=== PATIENT | male | born 1975 | race African-American/Black ===

== ENCOUNTER 2017-09-01 09:22 | Emergency (ER) | payer OTHER ==
[2017-09-01] MEDS ORDERED: cloNIDine 0.1 MG TAB ONE (09:45)
[2017-09-01] MEDS ORDERED: Lisinopril 10 MG TAB ONE (09:45)
[2017-09-01 09:59] LABS: #Eosinphils 0.1 thou/uL (0.0-0.7); #Lymphocytes 1.6 thou/uL (1.20-3.40); #Monocytes 0.4 thou/uL (0.11-0.59); #Neutrophils 4.5 thou/uL (1.40-6.50); %Basophils 0.5 % (0.0-1.0); %Eosinophils 1.3 % (0.0-10.0); %Lymphocytes 24.2 % (21.0-51.0); %Monocytes 5.6 % (0.0-10.0); Hematocrit 45.7 % (42.0-52.0); Mean Platelet Volume 10.6 fL (7.4-10.4); Red Blood Cell (RBC) Count 4.94 mill/uL (4.70-6.10); White Blood Cell (WBC) Count 6.6 thou/uL (4.8-10.8)
[2017-09-01] MEDS ORDERED: Hydrochlorothiazide 25 MG TAB PO SCH (10:00)
--- NOTE | 2017-09-01 10:22 | RAD ---
PORTABLE CHEST 1 VIEW: Date: 09/01/17 Time: 0943 hours HISTORY: Hypertension, chest pain. FINDINGS: Comparison made with exam of 10/06/16. The heart size is normal. The lungs are well expanded without focal areas of consolidation, pneumoth orax, or pleural effusions. There is no evidence of yadiel pulmonary edema. IMPRESSION: No radiographic evidence of acute cardiopulmonary process. POS: [facility]
[2017-09-01 10:24] LABS: ALT (SGPT) 15 U/L (8-55); AST (SGOT) 12 U/L (5-34); Alkaline Phosphatase 80 U/L (40-150); Anion Gap 8 mmol/L (10-20); BUN (Urea Nitrogen) 22 mg/dL (8.9-20.6); Bilirubin, Total 0.4 mg/dL (0.2-1.2); CK (CPK) 293 U/L (30-200); Calc. Creatinine Clearance 0 mL/min (70-130); Calcium 8.9 mg/dL (7.8-10.44); Carbon Dioxide 30 mmol/L (22-29); Chloride 106 mmol/L (98-107); Estimated GFR-MDRD 54; Globulin 2.9 g/dL (2.4-3.5); Protein, Total 6.9 g/dL (6.0-8.3); Troponin I 0.019 ng/mL (< 0.028)
== END 2017-09-01 11:46 | disposition home or self-care (01) ==
LOC: ERS 09:22
DX: R07.9 Chest pain, unspecified (principal); I10 Essential (primary) hypertension; E11.9 Type 2 diabetes mellitus without complications; F17.210 Nicotine dependence, cigarettes, uncomplicated; Z79.899 Other long term (current) drug therapy
CPT/HCPCS: 36415; 71010; 80053; 82550; 82553; 84484; 85025; 93005

== ENCOUNTER 2017-11-22 21:13 | Observation (INO) | payer OTHER ==
--- NOTE | 2017-11-22 21:48 | RAD ---
CHEST ONE VIEW 11/22/17 HISTORY: Chest pain. COMPARISON: Chest one view 09/01/17. FINDINGS: Heart size is mildly enlarged. No focal air space consolidation, pneumothorax or effusion. No osseous abnormality. IMPRESSION: Mild cardiomegaly. POS: [facility]
[2017-11-22 22:06] LABS: #Eosinphils 0.1 thou/uL (0.0-0.7); #Lymphocytes 2.4 thou/uL (1.20-3.40); #Monocytes 0.6 thou/uL (0.11-0.59); #Neutrophils 4.7 thou/uL (1.40-6.50); %Basophils 0.6 % (0.0-1.0); %Eosinophils 1.7 % (0.0-10.0); %Lymphocytes 30.7 % (21.0-51.0); %Monocytes 7.1 % (0.0-10.0); %Neutrophils 59.9 % (42.0-75.0); Hemoglobin 15.9 g/dL (14.0-18.0); Mean Corpuscular HGB CONC 32.8 g/dL (32.0-36.0); Mean Corpuscular Hemoglobin 30.8 pg (27.0-31.0); Mean Corpuscular Volume 93.9 fl (80.0-94.0); Mean Platelet Volume 10.5 fL (7.4-10.4); Platelet Count 146 thou/uL (130-400); RBC Distribution Width 12.7 % (11.5-14.5); Red Blood Cell (RBC) Count 5.17 mill/uL (4.70-6.10); White Blood Cell (WBC) Count 7.8 thou/uL (4.8-10.8)
[2017-11-22 22:23] LABS: ALT (SGPT) 23 U/L (8-55); AST (SGOT) 16 U/L (5-34); Albumin 3.9 g/dL (3.5-5.0); Alkaline Phosphatase 67 U/L (40-150); Anion Gap 14 mmol/L (10-20); BUN (Urea Nitrogen) 18 mg/dL (8.9-20.6); Bilirubin, Total 0.5 mg/dL (0.2-1.2); Calc. Creatinine Clearance 0 mL/min (70-130); Calcium 9.6 mg/dL (7.8-10.44); Carbon Dioxide 31 mmol/L (22-29); Chloride 102 mmol/L (98-107); Estimated GFR-MDRD 48; Globulin 2.5 g/dL (2.4-3.5); Glucose 119 mg/dL (70-105); Potassium 3.8 mmol/L (3.5-5.1); Protein, Total 6.4 g/dL (6.0-8.3); Sodium 143 mmol/L (136-145)
[2017-11-22 22:28] LABS: CKMB 3.8 ng/mL (0-6.6); Troponin I 0.032 ng/mL (< 0.028)
[2017-11-23] MEDS ORDERED: Acetaminophen 325 MG TAB PO PRN (00:22)
[2017-11-23 01:19] LABS: Troponin I 0.038 ng/mL (< 0.028)
[2017-11-23 02:18] VITALS: BMI 29.3
[2017-11-23 04:48] LABS: Troponin I 0.033 ng/mL (< 0.028)
[2017-11-23] MEDS ORDERED: Aspirin 325 MG TAB PO SCH (09:00)
--- NOTE | 2017-11-23 17:47 | NM ---
NUCLEAR MEDICINE CARDIAC STRESS TEST WITH EJECTION FRACTION: History: Hypertension. Smoker. Chest pain. Comparison: None. Technique: A nuclear medicine stress and rest was performed after the intravenous administration of 2 9.6 and 10.2 mCi Technetium 99M Sestamibi, respectively. FINDINGS: There is no evidence of scar or ischemia. The wall motion is normal. Ejection fraction is low at 41%. IMPRESSION: 1. No evidence of scar or ischemia. 2. Low ejection fraction at 41%. POS: [facility]
[2017-11-23] MEDS ORDERED: cloNIDine 0.1 MG TAB PO PRN (18:44)
[2017-11-23] MEDS ORDERED: Dextrose 5% in Water 1,000 ML IV PRN (18:45)
[2017-11-23] MEDS ORDERED: Insulin Regular 300 UNITS/3 ML VIAL SC PRN ×2 (18:45)
[2017-11-23] MEDS ORDERED: Lisinopril/Hydrochlorothiazide 20 mg/12.5 mg Tablet PO SCH (18:45)
[2017-11-23] MEDS ORDERED: Dextrose 50% Abboject 50 ML SYRINGE IVP PRN (18:45)
[2017-11-24 04:39] LABS: Hemoglobin A1c 6.4 % (4.0-6.0)
--- NOTE | 2017-11-24 05:56 | HP ---
DATE OF ADMISSION: 11/22/2017 CHIEF COMPLAINT: Chest pain. HISTORY OF PRESENT ILLNESS: Mr. Keene is a 42-year-old -[place] male with past medical hist ory of hypertension and cardiomyopathy. He came with chest pain in the retrosternal area. The patie nt had vomited once and then developed chest discomfort. He has chest pain in the retrosternal area, nonradiating, associated with nausea and vomiting. No shortness of breath. The patient called the EMS. EMS found the patient with elevated blood pressure. In the ER, the patient was evaluated and f ound to have markedly elevated blood pressure. He still uses cocaine, drug abuse, as well as smokes cigarettes. The patient was in the hospital a year ago, had echocardiogram, which showed cardiomyopa thy with a decreased ejection fraction. The patient ran out of medication a few days ago. The patie jada received aspirin and admitted for further evaluation and management. PAST MEDICAL HISTORY: 1. Hypertension. 2. History of borderline diabetes. PAST SURGICAL HISTORY: Status post neck surgery. CURRENT MEDICATIONS: Supposed to be on lisinopril 20/12.5 b.i.d. ALLERGIES: No known drug allergies. FAMILY HISTORY: Nothing of interest. SOCIAL HISTORY: The patient lives with family. Smokes few cigarettes a day and also uses cocaine an d he is a social drinker. REVIEW OF SYSTEMS: Cardiovascular: No chest pain. No shortness of breath. Respiratory: No fever or cough. Gastrointestinal: Has nausea and vomiting. No abdominal pain. Genitourinary: No dysuri a or hematuria. Central nervous system: No headache. No dizziness. PHYSICAL EXAMINATION: GENERAL: The patient is alert, awake, oriented x3. VITAL SIGNS: Temperature 98, pulse 72, respirations 20, blood pressure 160/100. HEENT: Head is normocephalic, atraumatic. Pupils equal and reactive. Nasopharynx is pink, moist. NECK: Supple. No JVD. LUNGS: Bilateral air entry present. No rales. No rhonchi. HEART: S1, S2 regular. ABDOMEN: Soft. No distention. No tenderness. Normal bowel sounds present. RECTAL: Deferred. CENTRAL NERVOUS SYSTEM: No focal deficits. LABORATORY AND X-RAY FINDINGS: CBC shows WBC 7.8, hemoglobin 15, hematocrit 48, platelets 146. Butler bolic panel, sodium 143, potassium 3.8, chloride 102, CO2 of 31, BUN 18, glucose 119. CK-MB 3.8. Tr oponin I 0.032. Accuchecks 143 and 178. Chest x-ray, normal, some mild cardiomegaly. EKG shows normal sinus rhythm, no acute ST-T wave tavares es. ASSESSMENT: 1. Chest pain, rule out myocardial infarction. 2. Hypertension, malignant. 3. Cardiomyopathy with decreased ejection fraction of 40%. Echo done in 2016. 4. Cocaine abuse. 5. Chronic kidney disease, stage 3. 6. Borderline diabetes. PLAN: 1. Vital signs q.4 hours. 2. Activity: As tolerated. 3. Allergies: No known drug allergies. 4. Hep-Lock. 5. Continue home medicine. 6. Cardiac diet. 7. Stress test. 8. Accu-Cheks before meals and at bedtime. 9. Sliding scale mild with regular insulin.
[2017-11-24 08:27] VITALS: TEMP 98.1
[2017-11-24] MEDS ORDERED: Lisinopril/Hydrochlorothiazide 20 mg/12.5 mg Tablet PO SCH ×2 (10:00→21:00)
[2017-11-24 12:07] VITALS: BP 162/101
[2017-11-24] MEDS ORDERED: NIFEdipine XL 90 MG TAB PO SCH (14:30)
--- NOTE | 2017-11-25 06:51 | DIS ---
DATE OF ADMISSION: 11/23/2017 DATE OF DISCHARGE: 11/24/2017 ADMITTING DIAGNOSES: 1. Chest pain, rule out myocardial infarction. 2. Hypertension, malignant. 3. Cardiomyopathy with decreased ejection fraction of 40%. 4. Echo done in 2016. 5. History of cocaine abuse. 6. Chronic kidney disease, stage 3. 7. Diabetes mellitus. FINAL DIAGNOSES: 1. Chest pain. No evidence of acute myocardial infarction, negative stress test. 2. Malignant hypertension, improved. 3. Cardiomyopathy with decreased ejection fraction of 40%. 4. Chronic kidney disease. 5. Diabetes mellitus. BRIEF SUMMARY OF HOSPITAL COURSE: Mr. Keene is a 42-year-old -[place]une[place] male, admitted [facility] of chest pain. The patient had a retrosternal chest pain without any nausea or vomiting. The jeovanny ent was admitted to rule out GA. Stress test was done and it was reported as negative for ischemia, and confirmed the ejection fraction of 41%. The patient's blood pressure improved after the medicati ons were adjusted. In view of improvement, the patient is being discharged home. At the time of dis charge, he was stable. His vital signs were stable. Lungs were clear. Heart sounds regular. Abdom en was soft, nontender. Bowel sounds present. DISCHARGE MEDICATIONS: Include aspirin 81 mg daily, lisinopril with hydrochlorothiazide 20/12.5 b.i. d., metformin 500 b.i.d., nifedipine, Procardia XL 90 mg daily, pravastatin 40 mg daily. FOLLOWUP: The patient will come for followup in 2 weeks.
== END 2017-11-24 14:36 | disposition home or self-care (01) ==
LOC: ERS 21:13 → 2SW 11-23 00:20
PROVIDERS: ADMIT Internal Medicine; ATTEND Internal Medicine
DX: R07.89 Other chest pain (principal); I12.9 Hypertensive chronic kidney disease with stage 1 through stage 4 chronic kidney disease, or unspecified chronic kidney disease; E11.22 Type 2 diabetes mellitus with diabetic chronic kidney disease; N18.3 Chronic kidney disease, stage 3 (moderate); I42.9 Cardiomyopathy, unspecified; F14.10 Cocaine abuse, uncomplicated; F17.210 Nicotine dependence, cigarettes, uncomplicated; Z98.890 Other specified postprocedural states
CPT/HCPCS: 36415; 36416; 71045; 78452; 80053; 82553; 83036; 84484; 85025; 93005; 93017; A9500; G0378; J0153

== ENCOUNTER 2018-01-27 07:34 | Emergency (ER) | payer OTHER ==
[2018-01-27 08:13] LABS: #Basophils 0.1 thou/uL (0.0-0.2); #Eosinphils 0.1 thou/uL (0.0-0.7); #Lymphocytes 1.4 thou/uL (1.20-3.40); #Monocytes 0.5 thou/uL (0.11-0.59); #Neutrophils 4.8 thou/uL (1.40-6.50); %Eosinophils 1.6 % (0.0-10.0); %Monocytes 7.5 % (0.0-10.0); Hemoglobin 14.7 g/dL (14.0-18.0); Mean Corpuscular HGB CONC 33.5 g/dL (32.0-36.0); Mean Corpuscular Hemoglobin 31.3 pg (27.0-31.0); Mean Corpuscular Volume 93.2 fl (80.0-94.0); Platelet Count 137 thou/uL (130-400); RBC Distribution Width 12.5 % (11.5-14.5); Red Blood Cell (RBC) Count 4.69 mill/uL (4.70-6.10); White Blood Cell (WBC) Count 6.9 thou/uL (4.8-10.8)
[2018-01-27 08:24] LABS: Alkaline Phosphatase 74 U/L (40-150); Anion Gap 13 mmol/L (10-20); Bilirubin, Total 0.3 mg/dL (0.2-1.2); Calc. Creatinine Clearance 0 mL/min (70-130); Calcium 8.6 mg/dL (7.8-10.44); Carbon Dioxide 25 mmol/L (22-29); Chloride 104 mmol/L (98-107); Estimated GFR-MDRD 60; Globulin 2.7 g/dL (2.4-3.5); Glucose 154 mg/dL (70-105); Potassium 3.2 mmol/L (3.5-5.1); Protein, Total 6.7 g/dL (6.0-8.3); Sodium 139 mmol/L (136-145)
[2018-01-27 08:25] LABS: BUN (Urea Nitrogen) 22 mg/dL (8.9-20.6)
[2018-01-27 08:26] LABS: AST (SGOT) 11 U/L (5-34)
[2018-01-27 08:27] LABS: ALT (SGPT) 15 U/L (8-55); Lipase 33 U/L (8-78)
[2018-01-27 08:37] LABS: CK (CPK) 250 U/L (30-200)
--- NOTE | 2018-01-27 08:37 | RAD ---
ABDOMEN 2 VIEWS WITH 1 VIEW CHEST: Date: 01/27/18 HISTORY: Abdominal pain. COMPARISON: Chest radiograph dated 11/22/17. FINDINGS: The lungs are clear. No pneumothorax. There is a radiopacity projecting over the neck seen on the carlos st radiograph, unknown if this is ingested or outside of the patient. Lungs are without focal air space consolidation, pneumothorax, or effusion. Cardiac silhouette and me diastinal contours within normal limits. On the upright view, no free air under the hemidiaphragms. No dilated air-filled loops of large or sm all bowel. Advanced degenerative disease of both hip joints with sclerosis and subchondral cysts of the acetabul um. No dilated loops of large or small bowel. No abnormal calcification projecting over the renal shadows . IMPRESSION: No acute intrathoracic or intra-abdominal abnormality. POS: [facility]
[2018-01-27 09:49] LABS: CKMB 2.8 ng/mL (0-6.6); Troponin I 0.033 ng/mL (< 0.028)
[2018-01-27] MEDS ORDERED: Nitroglycerin 2% Ointment 1 INCH/1 GM Packet ONE (11:01)
[2018-01-27 12:38] LABS: CKMB 2.7 ng/mL (0-6.6); Troponin I 0.031 ng/mL (< 0.028)
--- NOTE | 2018-02-15 01:26 | EKG ---
Test Reason : CHEST PAIN Blood Pressure : / mmHG Vent. Rate : 089 BPM Atrial Rate : 089 BPM P-R Int : 140 ms QRS Dur : 072 ms QT Int : 438 ms P-R-T Axes : 057 -14 -14 degrees QTc Int : 532 ms Normal sinus rhythm Moderate voltage criteria for LVH, may be normal variant Inferior infarct , age undetermined Prolonged QT Abnormal ECG Confirmed by FLORIDA CANO MD ([id number]), department editor MEG BRODERICK ([id number]) on 02/15/2018 1:25:37 AM Referred By: Confirmed By:FLORIDA CANO MD
== END 2018-01-27 13:14 | disposition home or self-care (01) ==
LOC: ERS 07:34
DX: R10.13 Epigastric pain (principal); R07.9 Chest pain, unspecified; E11.9 Type 2 diabetes mellitus without complications; I10 Essential (primary) hypertension; F17.210 Nicotine dependence, cigarettes, uncomplicated; Z79.899 Other long term (current) drug therapy; Z79.84 Long term (current) use of oral hypoglycemic drugs
CPT/HCPCS: 36415; 74022; 80053; 82553; 83690; 84484; 85025; 93005; 96360; 96361

== ENCOUNTER 2018-03-01 19:06 | Inpatient (IN) | payer OTHER ==
[2018-03-01] MEDS ORDERED: Labetalol HCl 100 MG/20 ML VIAL ONE (19:29)
[2018-03-01 19:48] LABS: #Eosinphils 0.1 thou/uL (0.0-0.7); #Lymphocytes 1.5 thou/uL (1.20-3.40); #Monocytes 0.3 thou/uL (0.11-0.59); #Neutrophils 2.3 thou/uL (1.40-6.50); %Basophils 0.7 % (0.0-1.0); %Eosinophils 2.2 % (0.0-10.0); %Monocytes 7.7 % (0.0-10.0); %Neutrophils 54.4 % (42.0-75.0); Hemoglobin 13.6 g/dL (14.0-18.0); Mean Corpuscular HGB CONC 33.2 g/dL (32.0-36.0); Mean Corpuscular Hemoglobin 30.7 pg (27.0-31.0); Mean Corpuscular Volume 92.4 fl (80.0-94.0); Mean Platelet Volume 10.2 fL (7.4-10.4); Platelet Count 143 thou/uL (130-400); RBC Distribution Width 12.1 % (11.5-14.5); Red Blood Cell (RBC) Count 4.44 mill/uL (4.70-6.10); White Blood Cell (WBC) Count 4.2 thou/uL (4.8-10.8)
[2018-03-01 19:55] LABS: PTT 30.8 SEC (22.9-36.1); Prothrombin Time 13.7 SEC (12.0-14.7)
--- NOTE | 2018-03-01 20:03 | RAD ---
PORTABLE AP CHEST X-RAY: 03/01/2018 HISTORY: Chest pain. COMPARISON: 11/22/2017 FINDINGS: The cardiac silhouette is magnified by projection but does appear mildly enlarged but is stable in si ze from the prior exam. The pulmonary vasculature is within normal limits. The lungs are clear. Th ere is an increased density focus overlying the anterior aspect of the lower cervical spine, likely p ostsurgical in origin. This was present on a prior study of 01/27/2018 and was also present on a sco ut view of the CT thorax study from 10/06/2016. IMPRESSION: 1. Cardiomegaly without overt congestive heart failure. 2. No acute cardiopulmonary process. POS: [facility]
[2018-03-01 20:09] LABS: ALT (SGPT) 20 U/L (8-55); AST (SGOT) 14 U/L (5-34); Albumin 4.2 g/dL (3.5-5.0); Alkaline Phosphatase 79 U/L (40-150); Anion Gap 9 mmol/L (10-20); BUN (Urea Nitrogen) 14 mg/dL (8.9-20.6); Bilirubin, Total 0.3 mg/dL (0.2-1.2); Calc. Creatinine Clearance 0 mL/min (70-130); Carbon Dioxide 30 mmol/L (22-29); Chloride 105 mmol/L (98-107); Estimated GFR-MDRD 59; Globulin 2.5 g/dL (2.4-3.5); Glucose 105 mg/dL (70-105); Lipase 34 U/L (8-78); Magnesium 2.3 mg/dL (1.6-2.6); Protein, Total 6.7 g/dL (6.0-8.3); Sodium 140 mmol/L (136-145)
[2018-03-01 20:12] LABS: CKMB 2.5 ng/mL (0-6.6); Troponin I 0.011 ng/mL (< 0.028)
[2018-03-01] MEDS ORDERED: niCARdipine 20MG In NaCl 20 MG/200 ML BAG ONE (20:15)
[2018-03-01] MEDS ORDERED: Amlodipine 10 MG TAB PO SCH (20:30)
[2018-03-01] MEDS ORDERED: Nitroglycerin 2% Ointment 1 INCH/1 GM Packet ONE (21:50)
[2018-03-01 22:20] LABS: Troponin I 0.019 ng/mL (< 0.028)
[2018-03-01] MEDS ORDERED: Acetaminophen 325 MG TAB ONE (23:25)
[2018-03-02] MEDS ORDERED: niCARdipine 20MG In NaCl 20 MG/200 ML BAG ONE (00:40)
[2018-03-02 00:56] LABS: Bilirubin Negative (Negative); Blood, Urine Negative (Negative); Clarity CLEAR (Clear); Glucose, Urine (Dipstick) Negative (Negative); Leukocyte Negative (Negative); Nitrite Negative (Negative); Protein, Urine (Dipstick) Negative (Neg-Trace); Specific Gravity, Urine 1.006 (1.002-1.036); Urobilinogen 0.2 mg/dL (0.2-1.0); pH, Urine 7.5 (5.0-9.0)
[2018-03-02] MEDS ORDERED: Labetalol HCl 100 MG/20 ML VIAL SLOW IVP PRN (01:00)
[2018-03-02] MEDS ORDERED: Acetaminophen 325 MG TAB PO PRN (01:02)
[2018-03-02 01:03] LABS: Amphetamine Not Detected (NotDetected); Barbiturates Screen Not Detected (NotDetected); Benzodiazepine Screen Not Detected (NotDetected); Cocaine Metabolite Screen Not Detected (NotDetected); Medtox Control Line Valid? VALID (VALID); Medtox Reader # READER 1; Methadone Not Detected (NotDetected); Methamphetamine Not Detected (NotDetected); Opiate Screen Not Detected (NotDetected); Oxycodone Screen Not Detected (NotDetected); Phencyclidine (PCP) Not Detected (NotDetected); THC/Cannabinoid Screen Not Detected (NotDetected); Tricyclic Screen Not Detected (NotDetected)
[2018-03-02] MEDS ORDERED: niCARdipine HCl 25 MG in Sodium Chloride 0.9% 250 ML 240 ML IVPB PRN (01:04)
[2018-03-02 01:17] VITALS: BMI 28.3
[2018-03-02 02:27] LABS: Troponin I 0.013 ng/mL (< 0.028)
[2018-03-02 09:29] VITALS: TEMP 97.8
[2018-03-02] MEDS ORDERED: Atorvastatin Calcium 10 MG TAB PO SCH (09:45)
[2018-03-02] MEDS ORDERED: NIFEdipine XL 90 MG TAB PO SCH (09:45)
[2018-03-02] MEDS ORDERED: metFORMIN 500 MG TAB PO SCH (09:45)
[2018-03-02] MEDS ORDERED: Lisinopril/Hydrochlorothiazide 20 mg/12.5 mg Tablet PO SCH (09:45)
--- NOTE | 2018-03-02 10:27 | CON ---
DATE OF CONSULTATION: 03/02/2018 SERVICE: Pulmonary Medicine. REASON FOR CONSULTATION: ICU patient. HISTORY OF PRESENT ILLNESS: The patient is a 42-year-old white male with past medical history significant for known heart disease. He was in his usual state of health until roughly 10 days ago. He ended up being incarcerated. He was in the detention setting. He was not being given his home blood pressure medications. Eight days into that incarceration, he started having significant chest discomfort. He was subsequently brought to the emergency department, and he was discovered to have high range blood pressures. He was restarted on his home p.o. medications and overnight, his blood pressures are well controlled and his chest pain has completely resolved. He denies any current fevers, chills, nausea, vomiting, chest pain, shortness of breath. He has an interview later today and is very interested in getting out of the hospital so that he can get to that location. PAST MEDICAL HISTORY: 1. Hypertension. 2. Prediabetes. 3. Chronic systolic heart failure with an outpatient Cardiology consultation pending. PAST SURGICAL HISTORY: Neck surgery. ALLERGIES: No known drug allergies. MEDICATIONS: List of his inpatient medications were reviewed. No specific updates were made. FAMILY HISTORY: Noncontributory. SOCIAL HISTORY: The patient lives with family members. He smokes half pack of cigarettes every 2 days. He has a history of cocaine use. He is a social drinker. REVIEW OF SYSTEMS: General, head, ears, eyes, nose, throat, cardiovascular, respiratory, GI, , musculoskeletal, neurologic and skin is negative except as mentioned in the HPI. PHYSICAL EXAMINATION: VITAL SIGNS: Afebrile, pulse 60, blood pressure 125/76, respirations 22, saturation 98% on room air. GENERAL: The patient is awake and alert, no apparent distress. LUNGS: Decent air entry. There is no prolonged expiratory phase, wheezing, rhonchi or crackles. HEART: Normal rate, regular. ABDOMEN: Soft, nontender, nondistended. Bowel sounds are positive. MUSCULOSKELETAL: No cyanosis or clubbing. There is no pitting in the bilateral lower extremities. NEUROLOGIC: Grossly nonfocal. LABORATORY DATA: WBC 4.2, hemoglobin 13.6, platelets 143,000. INR 1.0. Creatinine 1.55, which is close to his baseline. Basic metabolic profile, liver function studies are all otherwise unremarkable. Cardiac enzymes are negative x3. Lipase 34. Urinalysis is unremarkable. Urine drug screen was negative for any illicit substances. Previously, he has been positive for things like cocaine, cannabinoids, and opiates. Quantiferon gold was previously unremarkable. IMAGING: Chest x-ray demonstrates no acute cardiopulmonary abnormality. He has cardiomegaly present. ASSESSMENT: 1. Hypertension, secondary to not having access to blood pressure medications. 2. Chronic systolic heart failure, currently set up to see Cardiology in the outpatient setting. 3. Chest pain, resolved. PLAN: From my perspective, the patient is stable for transition out of the hospital. He can certainly go to the telemetry unit today. Pulmonary Critical Care will sign off when he goes to the floor. It is very important to him that he goes to a job interview today, so if Cardiology is okay with it, he can likely be considered for transition directly home. 70 minutes have been devoted to this patient in various activities. I personally reviewed all imaging studies and laboratory data noted within this document. For fifty percent of this time, I was interacting with the patient at the bedside or coordinating care with the care team. For the remainder of the time I was immediately available to the patient in the hospital unit. GRECIA
[2018-03-03] MEDS ORDERED: metFORMIN 500 MG TAB PO SCH (08:00)
[2018-03-03] MEDS ORDERED: Atorvastatin Calcium 10 MG TAB PO SCH (09:00)
[2018-03-03] MEDS ORDERED: NIFEdipine XL 90 MG TAB PO SCH (09:00)
[2018-03-03] MEDS ORDERED: Lisinopril/Hydrochlorothiazide 20 mg/12.5 mg Tablet PO SCH (09:00)
--- NOTE | 2018-03-05 11:10 | HP ---
REASON FOR ADMISSION: 03/01/2018 CHIEF COMPLAINT: Chest pain, elevated blood pressure. HISTORY OF PRESENT ILLNESS: Mr. Keene is a 42-year-old male admitted because of chest pain. The pa william was brought by the longterm department. The patient has not been getting his blood pressure medi cine for the last few days since in the longterm. He did not get any other medicines, so he started co mplaining of pain, so he was brought to the ER. By the time he came to the ER, he did not have any m ore chest pain, but his blood pressure was very high. In the ER, his blood pressure was 197/140. He received nitro as well as amlodipine p.o. with labetalol IV push in spite of that blood pressure did not come down, so he was started on Cardene infusion and admitted for further evaluation. The , his blood pressure markedly improved. He was admitted in the night to the ICU because of C ardene infusion and his p.o. medication has not been started yet. PAST MEDICAL HISTORY: 1. Hypertension. 2. Prediabetes. 3. Chronic systolic heart failure. PAST SURGICAL HISTORY: Neck surgery. HOME MEDICATIONS: Lisinopril with hydrochlorothiazide 20/12.5 b.i.d., pravastatin 40 mg daily, (nife dipine) Procardia XL 90 mg daily, metformin 500 mg daily, and aspirin 81 mg. ALLERGIES: No known drug allergies. FAMILY HISTORY: Nothing of interest. SOCIAL HISTORY: No history of smoking. No history of alcohol. REVIEW OF SYSTEMS: Except for chest pain. Otherwise, no other symptoms. He is unremarkable. PHYSICAL EXAMINATION: VITAL SIGNS: Temperature 98, pulse 79, respirations 20, and blood pressure initially 150/74. HEENT: Head is normocephalic, atraumatic. Pupils equal and reactive. Nasopharynx is pink, moist. NECK: Supple. No JVD. LUNGS: Bilateral air entry, no rales, no rhonchi. CARDIAC: S1, S2 regular. ABDOMEN: Soft, no distention, no tenderness. Normal bowel sounds. RECTAL: Deferred. NEUROLOGIC: No focal deficit. LABORATORY AND X-RAY FINDINGS: CBC shows WBC 4, hemoglobin 13, hematocrit 40, platelets 143. Metabo lic panel: Sodium 140, potassium 4, chloride 105, CO2 of 30, BUN 14, creatinine 1.5, glucose 105. U rinalysis negative. Urine drug screen negative. Chest x-ray negative. EKG shows normal sinus rhyth m, no acute ST-T wave changes seen. ASSESSMENT: 1. Hypertensive emergency. 2. Chest pain, rule out myocardial infarction. 3. Chronic systolic heart failure. PLAN: 1. Cardene infusion. 2. Diet: Low sodium. 3. Allergies: NKDA. 4. Activity: As tolerated. 5. He was started on his home medication and a Pulmonary consult.
== END 2018-03-02 10:28 | disposition left against medical advice (07) | DRG 305 ==
LOC: ERS 19:06 → CCU 21:37
PROVIDERS: ADMIT Internal Medicine; ATTEND Internal Medicine
DX: I16.1 Hypertensive emergency (principal); N17.9 Acute kidney failure, unspecified; I50.22 Chronic systolic (congestive) heart failure; I10 Essential (primary) hypertension; I11.0 Hypertensive heart disease with heart failure; R73.03 Prediabetes; Z79.899 Other long term (current) drug therapy; F17.210 Nicotine dependence, cigarettes, uncomplicated; F12.10 Cannabis abuse, uncomplicated
CPT/HCPCS: 36415; 71045; 80053; 80306; 81003; 82553; 83690; 83735; 84484; 85025; 85610; 85730; 93005; 94760; 96361; 96365; 96366; 96375; J7050

== ENCOUNTER 2020-06-09 02:56 | Emergency (ER) | payer OTHER ==
[2020-06-09] MEDS ORDERED: Lisinopril 10 MG TAB ONE (03:16)
[2020-06-09] MEDS ORDERED: cloNIDine 0.1 MG TAB ONE (03:16)
[2020-06-09] MEDS ORDERED: Hydrochlorothiazide 25 MG TAB PO SCH (03:30)
[2020-06-09 03:32] LABS: #Basophils 0.1 thou/uL (0.0-0.2); #Eosinphils 0.2 thou/uL (0.0-0.7); #Lymphocytes 1.8 thou/uL (1.20-3.40); #Monocytes 0.5 thou/uL (0.11-0.59); #Neutrophils 3.8 thou/uL (1.40-6.50); %Basophils 1.1 % (0.0-1.0); %Lymphocytes 27.9 % (21.0-51.0); %Monocytes 7.7 % (0.0-10.0); %Neutrophils 60.4 % (42.0-75.0); Hemoglobin 13.6 g/dL (14.0-18.0); Mean Corpuscular HGB CONC 33.8 g/dL (32.0-36.0); Mean Corpuscular Hemoglobin 30.1 pg (27.0-31.0); Mean Platelet Volume 10.5 fL (7.4-10.4); Platelet Count 137 thou/uL (130-400); RBC Distribution Width 13.9 % (11.5-14.5); Red Blood Cell (RBC) Count 4.51 mill/uL (4.70-6.10); White Blood Cell (WBC) Count 6.3 thou/uL (4.8-10.8)
[2020-06-09 03:53] LABS: ALT (SGPT) 36 U/L (8-55); AST (SGOT) 21 U/L (5-34); Albumin 4.1 g/dL (3.5-5.0); Alkaline Phosphatase 112 U/L (40-110); Anion Gap 13 mmol/L (10-20); BUN (Urea Nitrogen) 18 mg/dL (8.9-20.6); Bilirubin, Total 0.2 mg/dL (0.2-1.2); Calc. Creatinine Clearance 0 mL/min (70-130); Carbon Dioxide 28 mmol/L (22-29); Chloride 103 mmol/L (98-107); Estimated GFR-MDRD 67; Globulin 3.1 g/dL (2.4-3.5); Glucose 167 mg/dL (70-105); Potassium 3.9 mmol/L (3.5-5.1); Protein, Total 7.2 g/dL (6.0-8.3); Sodium 140 mmol/L (136-145)
[2020-06-09] MEDS ORDERED: Ketorolac Tromethamine 30 MG/ML VIAL ONE (03:59)
--- NOTE | 2020-06-09 07:07 | ULT ---
PRELIMINARY REPORT/[facility]/EMERGENCY AFTER HOURS PROCEDURE EXAM: US Duplex right Lower Extremity Veins. CLINICAL HISTORY: RLE pain/edema x 2 days HX rt ankle broken 2 months ago TECHNIQUE: Real-time ultrasound scan of the veins of the right lower extremity with color Doppler flow, spectral waveform analysis and compression. COMPARISON: None provided. FINDINGS: DEEP VEINS: The common femoral, femoral, and popliteal veins are echolucent and compressible. These vessels demon strate respiratory variation and augmentation. There is normal color Doppler flow throughout. The visualized calf veins are also patent. SUPERFICIAL VEINS: The visualized greater saphenous vein is patent. SOFT TISSUES: No popliteal fossa cyst or other abnormalities. IMPRESSION: No deep venous thrombosis in the right lower extremity. ELECTRONICALLY SIGNED BY: Xavier Shore MD Jun 09, 2020 3:53:45 AM CDT This report is intended for review by the ordering physician only, in accordance of law. If you recei ve this report in error, please call [facility] at [phone]. FINAL REPORT Exam:Rightlower extremity venous ultrasound with Doppler HISTORY: Rightlower extremity swelling COMPARISON: None TECHNIQUE: Grayscale, color flow, Doppler imaging and spectral wave muscle performed right lower extr emity venous system FINDINGS: There is compressibility, presence of flow and augmentation in the common femoral vein, femoral vein and popliteal vein. There is flow in the posterior tibial vein. There is flow in the greater saphenous vein and profunda femoral vein IMPRESSION: 1. This report is in agreement with initial report by [facility]. 2. No thrombus in the right lower extremity deep venous system. Transcribed Date/Time: 06/09/2020 7:26 AM
--- NOTE | 2020-06-09 07:46 | RAD ---
RADIOGRAPH CHEST 1 VIEW: DATE: 06/09/2020 HISTORY: 44-year-old male with hypertension FINDINGS: The thoracic aorta is tortuous and ectatic. There is no evidence of airspace density, pulmonary edema , or pneumothorax. The lateral costophrenic angles are not effaced. No cardiomegaly. IMPRESSION: 1) No acute pulmonary findings. 2) ectasia of thoracic aorta.
== END 2020-06-09 04:21 ==
LOC: ERS 02:56
DX: M79.89 Other specified soft tissue disorders (principal); E11.9 Type 2 diabetes mellitus without complications; I11.0 Hypertensive heart disease with heart failure; I50.9 Heart failure, unspecified; F17.210 Nicotine dependence, cigarettes, uncomplicated; Z79.899 Other long term (current) drug therapy; Z79.4 Long term (current) use of insulin
CPT/HCPCS: 36415; 71045; 80053; 85025; 96372; J1885

== ENCOUNTER 2020-06-30 08:56 | Emergency (ER) | payer OTHER ==
[2020-06-30] MEDS ORDERED: Amlodipine 5 MG TAB ONE (09:40)
[2020-06-30] MEDS ORDERED: Ketorolac Tromethamine 30 MG/ML VIAL ONE (09:40)
--- NOTE | 2020-06-30 09:52 | RAD ---
Exam:3 views right ankle HISTORY: Pain. Fracture. COMPARISON: None FINDINGS: Following the right ankle. Old distal fibular fracture with displacement. Acute medial mall eolus fracture appears to be present. There is soft tissue swelling. Subluxation of the talotibial articulation. IMPRESSION: Acute and remote fractures involving the right ankle with associated soft tissue swelling . There is subluxation. Orthopedic consultation is recommended.
== END 2020-06-30 11:25 ==
LOC: ERS 08:56
DX: S82.841A Displaced bimalleolar fracture of right lower leg, initial encounter for closed fracture (principal); E11.9 Type 2 diabetes mellitus without complications; I11.0 Hypertensive heart disease with heart failure; I50.9 Heart failure, unspecified; F17.210 Nicotine dependence, cigarettes, uncomplicated; Z79.899 Other long term (current) drug therapy
CPT/HCPCS: 96372; J1885

== ENCOUNTER 2020-08-10 11:18 | Emergency (ER) | payer OTHER ==
[2020-08-10 11:51] LABS: #Basophils 0.1 thou/uL (0.0-0.2); #Eosinphils 0.2 thou/uL (0.0-0.7); #Lymphocytes 1.7 thou/uL (1.20-3.40); #Monocytes 0.4 thou/uL (0.11-0.59); #Neutrophils 2.7 thou/uL (1.40-6.50); %Basophils 1.1 % (0.0-1.0); %Eosinophils 3.3 % (0.0-10.0); %Lymphocytes 33.5 % (21.0-51.0); %Monocytes 8.4 % (0.0-10.0); %Neutrophils 53.7 % (42.0-75.0); Hemoglobin 15.5 g/dL (14.0-18.0); Mean Corpuscular HGB CONC 30.6 g/dL (32.0-36.0); Mean Corpuscular Hemoglobin 27.3 pg (27.0-31.0); Mean Corpuscular Volume 89.2 fL (78.0-98.0); Mean Platelet Volume 10.4 fL (7.4-10.4); Platelet Count 172 thou/uL (130-400); RBC Distribution Width 12.4 % (11.5-14.5); Red Blood Cell (RBC) Count 5.68 mill/uL (4.70-6.10); White Blood Cell (WBC) Count 5.1 thou/uL (4.8-10.8)
[2020-08-10 12:14] LABS: ALT (SGPT) 18 U/L (8-55); AST (SGOT) 11 U/L (5-34); Albumin 4.2 g/dL (3.5-5.0); Alkaline Phosphatase 127 U/L (40-110); Anion Gap 15 mmol/L (10-20); BUN (Urea Nitrogen) 18 mg/dL (8.9-20.6); Bilirubin, Total 0.4 mg/dL (0.2-1.2); Calc. Creatinine Clearance 0 mL/min (70-130); Calcium 8.8 mg/dL (7.8-10.44); Carbon Dioxide 25 mmol/L (22-29); Chloride 100 mmol/L (98-107); Estimated GFR-MDRD 58; Globulin 3.4 g/dL (2.4-3.5); Glucose 327 mg/dL (70-105); Potassium 3.8 mmol/L (3.5-5.1); Protein, Total 7.6 g/dL (6.0-8.3); Sodium 136 mmol/L (136-145)
--- NOTE | 2020-08-10 12:21 | RAD ---
CHEST 1 VIEW: Date: 08/10/2020 COMPARISON: 06/09/2020. HISTORY: Hypertension. EKG changes. FINDINGS: Normal cardiac silhouette. Pulmonary vessels and hilum are normal. Costophrenic angles are clear. No consolidation or mass. No pneumothorax or acute osseous abnormalities. IMPRESSION: No acute cardiopulmonary process. POS: [facility]
--- NOTE | 2020-08-16 15:42 | EKG ---
Test Reason : Blood Pressure : / mmHG Vent. Rate : 070 BPM Atrial Rate : 070 BPM P-R Int : 124 ms QRS Dur : 082 ms QT Int : 430 ms P-R-T Axes : 036 -20 -15 degrees QTc Int : 464 ms Normal sinus rhythm Possible Left atrial enlargement Left ventricular hypertrophy Inferior infarct , age undetermined Anterior injury pattern Left ventricular hypertrophy with repolarization Abnormal ECG Confirmed by ESTEBAN SHIPMAN, OPAL ([id number]), editorial writer MEG BRODERICK ([id number]) on 08/16/2020 3:42:25 PM Referred By: Confirmed By:OPAL ORELLANA MD
== END 2020-08-10 13:00 ==
LOC: ERS 11:18
DX: E11.9 Type 2 diabetes mellitus without complications (principal); I11.0 Hypertensive heart disease with heart failure; I50.9 Heart failure, unspecified; F17.210 Nicotine dependence, cigarettes, uncomplicated; Z79.899 Other long term (current) drug therapy
CPT/HCPCS: 71045; 80053; 84484; 85025; 93005